=== PATIENT | male | born 1930 | race Caucasian/White ===

== ENCOUNTER → 2016-11-11 | Outpatient (CLI) | payer OTHER, BC ==
[~2016-11-11] MED LIST: ALBU0.5N2 INH; ALBUAER2 INH; ASPCH81 PO; ATOR-54 PO; FINA5TAB PO; FLM4 PO; FRRS300 PO; GABA-113 PO; GLC500 PO; HMLI SC; INSDGI SC; IPRASOL4 INH; LISI5TAB PO; METO25TA56 PO; NITR0.4S UT; POLY99.02 OPB; PRED10TA PO; PRT40 PO; SERT-234 PO; SYMIN160 INH; TIOTCAP INH
--- NOTE | 2016-11-11 09:44 | DIAGNOSTIC IMAGING REPORT ---
CHEST CT WITHOUT CONTRAST CT DOSE: 583.19 mGy.cm HISTORY: Follow-up pulmonary nodules. 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 COMPARISON: Chest CT 05/02/2016. FINDINGS: The central airways are patent. No pleural effusions. No pneumothorax. Moderate bullous emphysema is again noted. Linear scarlike densities at the lung apices remain unchanged. Biapical nodular/irregular densities are not significantly changed. Dominant irregular nodule within the left lung apex on image 61 measures 11 x 6 mm. Dominant right lung apex nodular density measures 8 x 6 mm. Punctate calcified granulomas at the right lung base. No suspicious lytic or blastic osseous lesions. No mediastinal or hilar lymphadenopathy. 11 mm exophytic hypodense lesion within the upper pole the left kidney remains unchanged. Stable 1 cm hypodense lesion within the right hepatic lobe. Normal adrenal glands. Mild calcified plaque within the aortic arch. No mediastinal or hilar lymphadenopathy. The heart is normal in size. IMPRESSION: 1. Moderate emphysema. 2. Stable irregular/nodular densities at the lung apices. Continued six-month chest CT follow-up is recommended. Electronically signed by: Chemo Yadav M.D. 11/11/2016 9:42 AM Dictated Date/Time: 11/11/2016 9:34 AM
== END | disposition home or self-care (01) ==
LOC: C.CTS 09:14
PROVIDERS: ATTEND Internal Medicine Critical Care Medicine
DX: J44.9 Chronic obstructive pulmonary disease, unspecified (principal); R91.8 Other nonspecific abnormal finding of lung field; Z87.891 Personal history of nicotine dependence; J43.9 Emphysema, unspecified